=== PATIENT | male | born 1960 | race Caucasian/White ===

== ENCOUNTER 2018-02-22 11:58 | Inpatient (IN) | payer BC ==
[~2018-02-22] VITALS: Ht 182.9 cm; Wt 98.4 kg
[2018-02-22] MEDS ORDERED: MORPHINE SULFATE 4 MG/ML CPJ (NOT FOR IM USE) IV ONE ×2 (13:00→14:00)
[2018-02-22] MEDS ORDERED: NITROGLYCERIN 0.4MG/HR PATCH TOP ONE (13:00)
[2018-02-22] MEDS ORDERED: ONDANSETRON HCL 4MG/2ML INJ IV ONE (13:00)
[2018-02-22 13:11] LABS: BASOPHILS % 1.1 % (0.0-2.0); EOSINOPHILS % 1.8 % (0.0-5.0); HEMATOCRIT. 42.9 % (42.0-52.0); LYMPHOCYTES % 25.9 % (20.0-50.0); MEAN CORPUSCULAR HEMOGLOBIN 30.6 pg (28.0-32.0); MEAN CORPUSCULAR VOLUME 87.4 fL (80.0-94.0); MEAN PLATELET VOLUME 8.8 fl (7.4-10.4); MONOCYTES % 7.2 % (2.0-8.0); PLATELET 238 x1000/uL (130-400); RED BLOOD CELL COUNT 4.91 mill/uL (4.7-6.1); RED CELL DISTRIBUTION WIDTH 13.1 % (11.6-14.6)
[2018-02-22 13:22] LABS: CHLORIDE 105 mEq/L (98-107)
[2018-02-22] MEDS ORDERED: ENOXAPARIN 100MG/ML SYR SUBCUT ONE (14:00)
[2018-02-22] MEDS ORDERED: NA PHOS,M-B/NA PHOS,DI-BA ENEMA 118ML PR PRN (14:30)
[2018-02-22] MEDS ORDERED: IPRATROPIUM/ALBUTEROL 0.5-3(2.5)MG/3ML NEB INH PRN (14:30)
[2018-02-22] MEDS ORDERED: MORPHINE SULFATE 4 MG/ML CPJ (NOT FOR IM USE) IV PRN (14:30)
[2018-02-22] MEDS ORDERED: MAGNESIUM/ALUMINUM HYDROXIDE/SIMETHICONE 30ML UDC PO PRN (14:30)
[2018-02-22] MEDS ORDERED: DOCUSATE SODIUM 100MG CAPSULE PO PRN (14:30)
[2018-02-22] MEDS ORDERED: CLONIDINE 0.1MG TABLET PO PRN (14:30)
[2018-02-22] MEDS ORDERED: ACETAMINOPHEN 325MG TABLET PO PRN (14:30)
[2018-02-22] MEDS ORDERED: TRAMADOL 50MG TABLET PO PRN (14:30)
[2018-02-22] MEDS ORDERED: NITROGLYCERIN 0.4MG TABLET SL SL PRN (14:30)
[2018-02-22] MEDS ORDERED: ONDANSETRON HCL 4MG/2ML INJ IV PRN (14:30)
[2018-02-22] MEDS ORDERED: GUAIFENESIN 200MG/10ML SUGAR FREE UDC PO PRN (14:30)
[2018-02-22] MEDS ORDERED: ZOLPIDEM TARTRATE 5MG TABLET PO PRN (14:30)
[2018-02-22 18:15] VITALS: BP 103/66
[2018-02-22] MEDS ORDERED: RAMI5CAP65 MT (18:37)
[2018-02-22] MEDS ORDERED: ROPI0.5T MT (18:37)
[2018-02-22 20:00] VITALS: BP 96/63
[2018-02-22] MEDS ORDERED: INFLUENZA VIRUS VACCINE(AFLURIA) 0.5ML SYR IM ONE (20:00)
[2018-02-22] MEDS: METOPROLOL TARTRATE 25MG TABLET PO SCH (20:50)
[2018-02-22] MEDS: FAMOTIDINE 20MG TABLET PO SCH (20:50)
[2018-02-22] MEDS ORDERED: ATORVASTATIN CALCIUM 10MG TABLET PO SCH (21:00)
[2018-02-22 23:52] VITALS: BP 105/70
[2018-02-23 00:03] LABS: CREATINE KINASE 92 IU/L (39-308); CREATINE KINASE MB FRACTION 1.3 ng/mL (0.5-3.6)
[2018-02-23 04:00] VITALS: BP 123/75
[2018-02-23 07:04] LABS: CREATINE KINASE 92 IU/L (39-308)
[2018-02-23 08:00] VITALS: BP 130/89
[2018-02-23] MEDS: METOPROLOL TARTRATE 25MG TABLET PO SCH (08:49)
[2018-02-23] MEDS: FAMOTIDINE 20MG TABLET PO SCH (08:52)
[2018-02-23] MEDS ORDERED: ASPIRIN 325MG EC TABLET PO SCH (09:00)
[2018-02-23] MEDS ORDERED: ENOXAPARIN 40MG/0.4ML SYR SUBCUT SCH (10:00)
[2018-02-23 11:11] VITALS: BP 121/79
== END 2018-02-23 12:56 | disposition home or self-care (01) | DRG 313 ==
LOC: ER 11:58 → 7WST 14:15 → EDBEDREQ 14:17 → EDBEDREQTM 14:17 → SUPCPDRO 14:53 → ENRESERV 16:55
PROVIDERS: ADMIT Internal Medicine; ATTEND Internal Medicine
DX: R07.89 Other chest pain (principal); E78.00 Pure hypercholesterolemia, unspecified; I10 Essential (primary) hypertension; I48.91 Unspecified atrial fibrillation; Z79.899 Other long term (current) drug therapy
CPT/HCPCS: 36415; 71045; 80061; 82550; 82553; 83036; 83735; 83880; 84484; 90686; 93005; 93306; 93970; 96374; 96375; 99285; J1650; J2270; J2405